=== PATIENT | male | born 1965 | race Hispanic/Latino ===

== ENCOUNTER → 2017-10-27 | Outpatient (CLI) | payer BC ==
[~2017-10-27] MED LIST: CIPRO500 MG PO; DEPO-TESTOS100 MG/ML; FOLIC ACID0.4 MG PO; METHOTREXA25 MG/1 M3 IV; METHOTREXATE2.5 MG PO; NORCO 7.5-3251 EACH PO; REMICADE100 MG/VIA IV; SOMA350 MG PO; TESTOSTERO200 MG/1 M PO
--- NOTE | 2017-10-27 14:51 | Diagnostic Imaging Report ---
PROCEDURE: CT ABDOMEN AND PELVIS WITHOUT CONTRAST TECHNIQUE: The abdomen and pelvis were scanned utilizing a multidetector helical scanner from the diaphragm to the lesser trochanter after the oral administration of water. No IV contrast was administered per protocol. Coronal and sagittal multiplanar reformations were obtained. COMPARISON: Patients [facility], CT, CT ABDOMEN/PELVIS WO, 05/23/2011, 16:29. Patients [facility], CT, CT ABDOMEN/PELVIS W, 04/07/2014, 17:50. INDICATIONS: CALCULUS OF KIDNEY FINDINGS: ABSENCE OF INTRAVENOUS CONTRAST DECREASES SENSITIVITY FOR DETECTION OF FOCAL LESIONS AND VASCULAR PATHOLOGY. LOWER THORAX: Lung bases are grossly clear. Atherosclerotic calcification of the coronary arteries. HEPATOBILIARY: Marked diffuse hepatic steatosis. No focal lesions. No biliary ductal dilation. The gallbladder is unremarkable. SPLEEN: No splenomegaly. PANCREAS: No focal masses or ductal dilatation. ADRENALS: No adrenal nodules. KIDNEYS/URETERS: No renal, ureteral, or bladder calculi. No hydronephrosis or obstruction. No renal contour abnormalities or significant perinephric stranding. PELVIC ORGANS/BLADDER: Bladder and prostate are unremarkable. PERITONEUM / RETROPERITONEUM: No free air or fluid. LYMPH NODES: Mildly enlarged right external iliac lymph node (series 3, image 150), which measures 1.1 cm in short axis, decreased from previous. Mildly enlarged left external iliac lymph node which measures 1.1 cm in short axis (series 3, image 145), stable. No other adenopathy. VESSELS: IVC filter in place. Extensive venous collaterals are again seen in the abdominal wall. GI TRACT: No bowel dilation or evidence of obstruction. No pericolonic inflammatory changes. Marked degenerative disc changes L5-S1 with grade 1 anterolisthesis of L5 on S1 secondary to bilateral pars interarticularis defect. High density material in the right lateral aspect of L5 likely reflects vertebroplasty. IMPRESSION: 1. no renal, ureteral, or bladder calculi. No hydronephrosis or obstruction. 2. Marked diffuse hepatic steatosis. No focal lesions. 3. Mildly enlarged right external iliac lymph node, which is decreased since prior exam. Mildly enlarged left external iliac lymph node, which is stable. No other adenopathy. Lance Cast M.D. Dictated by: Lance Cast M.D. on 10/27/2017 at 14:53 Electronically approved by: Lance Cast M.D. on 10/27/2017 at 14:53
== END ==
LOC: CT 12:01
PROVIDERS: ATTEND Urology
DX: N20.0 Calculus of kidney (principal)
CPT/HCPCS: 74176

== ENCOUNTER → 2018-11-20 | Outpatient (CLI) | payer BC ==
--- NOTE | 2018-11-20 13:02 | Diagnostic Imaging Report ---
Exam: Right knee radiographs-3 views; left knee radiographs-3 views History: Bilateral knee pain. Comparison: None. Findings: No evidence of acute fracture, malalignment, or soft tissue mildly. No suprapatellar joint effusion. Minimal bilateral medial compartment degenerative changes Impression: No acute radiographic abnormality. Minimal bilateral knee medial compartment degenerative changes. Signed by: Dr. Cheryl Rosales MD on 11/20/2018 12:59 PM
--- NOTE | 2018-11-20 15:30 | Diagnostic Imaging Report ---
Exam: KUB - 3 views Clinical History: Renal calculus. Comparison: CT abdomen/pelvis 10/27/2017. Findings: Bowel gas partially obscures visualization of the kidneys. No evidence of nephrolithiasis. Calcification overlying the right L5 vertebral body corresponds to vertebral augmentation changes. No acute osseous abnormality. There is an IVC filter overlying the L3 vertebral body. Impression: Bowel gas partially obscures visualization of the kidneys. No evidence of nephrolithiasis. Signed by: Dr. Cheryl Rosales MD on 11/20/2018 3:27 PM
== END ==
LOC: RAD 12:00
PROVIDERS: ATTEND Urology
DX: M25.562 Pain in left knee (principal); M25.561 Pain in right knee; Z87.442 Personal history of urinary calculi
CPT/HCPCS: 74018

== ENCOUNTER → 2019-01-11 | Outpatient (CLI) | payer BC ==
[~2019-01-11] MED LIST changes: +BELBUCA SL; +CARISOPRODOL250 MG PO; +COSENTYX SC; +COUMADIN3 MG PO; +FLOMAX0.4 MG PO; +FOLIC ACID1 MG PO; +HYDROCODON-ACE1 EAC9 PO; +INVOKANA PO; +METFORMIN HCL500 MG PO; +PREDNISONE10 MG PO; +RASUVO SC; +WARFARIN SODIUM5 MG PO
--- NOTE | 2019-01-11 17:36 | Diagnostic Imaging Report ---
Exam: Testicular ultrasound. Clinical History: Right testicular pain Technique: Grayscale and color Doppler and waveform evaluation of the testes. Findings: Status post left orchiectomy. The right testicle measures 3.1 x 1.4 x 2.2 cm and demonstrates slightly heterogeneous echogenicity. Normal blood flow and waveform. 1 mm and 2 mm punctate calcifications in the superior testicle. The right epididymis measures 1.0 x 0.8 x 0.8 cm and appears normal. Trace right hydrocele. No varicocele. Bilateral nonenlarged inguinal lymph nodes. Impression: Status post left orchiectomy. Slightly heterogeneous echogenicity of right testicle with normal blood flow. Trace right hydrocele. Signed by: Molly Marcelino MD on 01/11/2019 5:32 PM
== END ==
LOC: US 16:13
PROVIDERS: ATTEND Urology
DX: C62.90 Malignant neoplasm of unspecified testis, unspecified whether descended or undescended (principal); N50.811 Right testicular pain; N43.3 Hydrocele, unspecified
CPT/HCPCS: 76870; 93976

== ENCOUNTER 2019-02-01 11:36 | Inpatient (IN) | payer BC ==
[~2019-02-01] VITALS: Ht 177.8 cm; Wt 149.2 kg
[~2019-02-01 11:36] MED LIST changes: -BELBUCA SL; -CARISOPRODOL250 MG PO; -COSENTYX SC; -COUMADIN3 MG PO; -FLOMAX0.4 MG PO; -FOLIC ACID1 MG PO; -HYDROCODON-ACE1 EAC9 PO; -INVOKANA PO; -METFORMIN HCL500 MG PO; -PREDNISONE10 MG PO; -RASUVO SC; -WARFARIN SODIUM5 MG PO
--- OUTSIDE RECORDS SUMMARY | 2019-02-01 11:39 | XMS REPORT ---
Author Author [facility] Address Unknown Phone Unavailable Care Team Providers Care Knitter Helper Name Role Phone TREASURE REDD Unavailable Unavailable Problems This patient has no known problems. Allergies, Adverse Reactions, Alerts This patient has no known allergies or adverse reactions. Medications This patient has no known medications. Results Test Description Test Time Test Comments Text Results Atomic Results Result Comments TESTICULAR 2019-01-11 17:28:00 [place] [address] Patient Name: CORBIN WEBB MR #: [id number] : 1965 Age/Sex: 53/M Req #: [id number] [facility] Physician: Ordered by: TREASURE REDD MD Report #: [id number] Location: Room/Bed: Procedure: [id number] US/US TESTICULAR Exam Date: 01/11/19 Exam Time: 1638 REPORT STATUS: Signed Exam: Testicular ultrasound. Clinical History: Right testicular pain Technique: Grayscale and color Doppler and waveform evaluation of the testes. Findings: Status post left orchiectomy. The right testicle measures 3.1 x 1.4 x 2.2 cm and demonstrates slightly heterogeneous echogenicity. Normal blood flow and waveform. 1 mm and 2 mm punctate calcifications in the superior testicle. The right epididymis measures 1.0 x 0.8 x 0.8 cm and appears normal. Trace right hydrocele. No varicocele. Bilateral nonenlarged inguinal lymph nodes. Impression: Status post left orchiectomy. Slightly heterogeneous echogenicity of right testicle with normal blood flow. Trace right hydrocele. Signed by: Lucila Vora MD on 01/11/2019 5:32 PM Dictated By: LUCILA VORA MD 31 Transcribed By: NISH on 01/11/191731 COPY TO: TREASURE REDD MD US TESTICULAR DOPPLER LTD 2019-01-11 17:28:00 [place] [address] Patient Name: CORBIN WEBB MR #: [id number] : 1965 Age/Sex: 53/M Req #: [id number] Adm Physician: Ordered by: TREASURE REDD MD Report #: [id number] Location: Room/Bed: Procedure: [id number] US/US TESTICULAR DOPPLER LTD Exam Date: 01/11/19 Exam Time: 1638 REPORT STATUS: Signed Exam: Testicular ultrasound. Clinical History: Right testicular pain Technique: Grayscale and color Doppler and waveform evaluation of the testes. Findings: Status post left orchiectomy. The right testicle measures 3.1 x 1.4 x 2.2 cm and demonstrates slightly heterogeneous echogenicity. Normal blood flow and waveform. 1 mm and 2 mm punctate calcifications in the superior testicle. The right epididymis measures 1.0 x 0.8 x 0.8 cm and appears normal. Trace right hydrocele. No varicocele. Bilateral nonenlarged inguinal lymph nodes. Impression: Status post left orchiectomy. Slightly heterogeneous echogenicity of right testicle with normal blood flow. Trace right hydrocele. Signed by: Lucila Vora MD on 01/11/2019 5:32 PM Dictated By: LUCILA VORA MD 31 Transcribed By: NISH on 01/11/191731 COPY TO: TREASURE REDD MD ABDOMEN-1VIEW (KUB) 2018-11-20 15:17:00 [place] [address] Patient Name: CORBIN WEBB MR #: [id number] : 1965 Age/Sex: 53/M Req #: [id number] Adm Physician: Ordered by: TREASURE REDD MD Report #: [id number] Location: [facility] Room/Bed: Procedure: [id number] DX/ABDOMEN-1VIEW (KUB) Exam Date: 11/20/18 Exam Time: 1458 REPORT STATUS: Signed Exam: KUB - 3 views Clinical History: Renal calculus. Comparison: CT abdomen/pelvis 10/27/2017. Findings: Bowel gas partially obscures visualization of the kidneys. No evidence of nephrolithiasis. Calcification overlying the right L5 vertebral body corresponds to vertebral augmentation changes. No acute osseous abnormality. There is an IVC filter overlying the L3 vertebral body. Impression: Bowel gas partially obscures visualization of the kidneys. No evidence of nephrolithiasis. Signed by: Dr. Davidson Brannon MD on 11/20/2018 3:27 PM Dictated By: DAVIDSON BRANNON MD 1527 Transcribed By: NISH on 11/20/18 152 COPY TO: TREASURE REDD MD KNEE THREE VIEWS BILATERAL 2018-11-20 12:56:00 [place] [address] [place], [place] [address] Patient Name: CORBIN WEBB MR #: [id number] : 1965 Age/Sex: 53/M Req #: [id number] Adm Physician: Ordered by: RUTH WILLOUGHBY Report #: [id number] Location: RAD Room/Bed: Procedure: [id number] DX/KNEE THREE VIEWS BILATERAL Exam Date: 11/20/18 Exam Time: 1228 REPORT STATUS: Signed Exam: Right knee radiographs-3 views; left knee radiographs-3 views History: Bilateral knee pain. Comparison: None. Findings: No evidence of acute fracture, malalignment, or soft tissue mildly. No suprapatellar joint effusion. Minimal bilateral medial compartment degenerative changes Impression: No acute radiographic abnormality. Minimal bilateral knee medial compartment degenerative changes. Signed by: Dr. Davidson Brannon MD on 11/20/2018 12:59 PM Dictated By: DAVIDSON BRANNON MD 1259 Transcribed By: NISH on 11/20/18 1259 COPY TO: RUTH WILLOUGHBY (NON STAFF) CT ABDOMEN/PELVIS WO [address] [address] Patient Name: CORBIN WEBB MR #: [id number] : 1965 Age/Sex: 52/M Req #: [id number] Adm Physician: Ordered by: TREASURE REDD MD Report #: [id number] Location: CT Room/Bed: Procedure: [id number] CT/CT ABDOMEN/PELVIS WO Exam Date: 10/27/17 Exam Time: 1231 REPORT STATUS: Signed PROCEDURE: CT ABDOMEN AND PELVIS WITHOUT CONTRAST TECHNIQUE: The abdomen and pelvis were scanned utilizing a multidetector helical scanner from the diaphragm to the lesser trochanter after the oral administration of water. No IV contrast was administered per protocol. Coronal and sagittal multiplanar reformations were obtained. COMPARISON: [facility], CT, CT ABDOMEN/PELVIS WO, 05/23/2011, 16:29. [facility], CT, CT ABDOMEN/PELVIS W, 04/07/2014, 17:50. INDICATIONS: CALCULUS OF KIDNEY FINDINGS: ABSENCE OF INTRAVENOUS CONTRAST DECREASES SENSITIVITY FOR DETECTION OF FOCAL LESIONS AND VASCULAR PATHOLOGY. LOWER THORAX: Lung bases are grossly clear. Atherosclerotic calcification of the coronary arteries. HEPATOBILIARY: Marked diffuse hepatic steatosis. No focal lesions. No biliary ductal dilation. The gallbladder is unremarkable. SPLEEN: No splenomegaly. PANCREAS: No focal masses or ductal dilatation. ADRENALS: No adrenal nodules. K IDNEYS/URETERS: No renal, ureteral, or bladder calculi. No hydronephrosis or obstruction. No renal contour abnormalities or significant perinephric stranding. PELVIC ORGANS/BLADDER: Bladder and prostate are unremarkable. PERITONEUM / RETROPERITONEUM: No free air or fluid. LYMPH NODES: Mildly enlarged right external iliac lymph node (series 3, image 150), which measures 1.1 cm in short axis, decreased from previous. Mildly enlarged left external iliac lymph node which measures 1.1 cm in short axis (series 3, image 145), stable. No other adenopathy. VESSELS: IVC filter in place. Extensive venous collaterals are again seen in the abdominal wall. GI TRACT: No bowel dilation or evidence of obstruction. No pericolonic inflammatory changes. Marked degenerative disc changes L5-S1 with grade 1 anterolisthesis of L5 on S1 secondary to bilateral pars interarticularis defect. High density material in the right lateral aspect of L5 likely reflects vertebropl asty. IMPRESSION: 1. no renal, ureteral, or bladder calculi. No hydronephrosis or obstruction. 2. Marked diffuse hepatic steatosis. No focal lesions. 3. Mildly enlarged right external iliac lymph node, which is decreased since prior exam. Mildly enlarged left external iliac lymph node, which is stable. No other adenopathy. Maliha Cast M.D. Dictated by: Maliha Cast M.D. on 10/27/2017 at 14:53 Electronically approved by: Maliha Cast M.D. on 10/27/2017 at 14:53 Dictated By: MALIHA CAST MD 1454 Transcribed By: KEREN on 10/27/17 1451 COPY TO: TREASURE REDD MD
[2019-02-01] MEDS ORDERED: SODIUM CHLORIDE 0.9% 1000ML 1,000 ML IV STA (12:38)
[2019-02-01] MEDS ORDERED: ACETAMINOPHEN 325 MG TAB PO ONE (12:45)
[2019-02-01] MEDS ORDERED: CEFTRIAXONE SOD 1 GM VIAL IV ONE (13:00)
[2019-02-01 13:18] LABS: BASOPHILS % 0.2 % (0.0-1.0); EOSINOPHILS # (AUTO) 0.1 (0.0-0.4); EOSINOPHILS % 0.6 % (0.0-6.0); HEMATOCRIT 47.8 % (38.2-49.6); HEMOGLOBIN 15.9 g/dL (14.0-18.0); LYMPHOCYTES # (AUTO) 0.9 (1.0-3.2); LYMPHOCYTES % 5.2 % (18.0-39.1); MEAN CORPUSCULAR HEMOGLOBIN 32.2 pg (28-32); MEAN CORPUSCULAR HGB CONC 33.3 g/dL (31-35); MEAN CORPUSCULAR VOLUME 96.8 fL (81-99); MONOCYTES % 5.9 % (4.4-11.3); NEUTROPHILS # (AUTO) 14.5 (2.1-6.9); NEUTROPHILS % 87.5 % (38.7-80.0); PLATELET COUNT 201 x10e3/uL (140-360); RED BLOOD COUNT 4.94 x10e6/uL (4.3-5.7); RED CELL DISTRIBUTION WIDTH 15.3 % (11.7-14.4)
[2019-02-01 13:36] LABS: INR 1.83; PROTHROMBIN TIME 21.8 seconds (11.9-14.5)
[2019-02-01 13:37] LABS: PARTIAL THROMBOPLASTIN TIME 33.9 seconds (23.8-35.5)
[2019-02-01 13:48] LABS: ALANINE AMINOTRANSFERASE 49 IU/L (0-55); ALBUMIN 3.7 g/dL (3.5-5.0); ALBUMIN/GLOBULIN RATIO 0.9 (0.8-2.0); ALKALINE PHOSPHATASE 73 IU/L (40-150); ANION GAP 18.1 mmol/L (8-16); BLOOD UREA NITROGEN 20 mg/dL (7-26); BUN/CREATININE RATIO 21 (6-25); CARBON DIOXIDE 23 mmol/L (22-29); CHLORIDE 100 mmol/L (98-107); CREATINE KINASE 71 IU/L (30-200); CREATININE, SERUM 0.94 mg/dL (0.72-1.25); EST GLOMERULAR FILTRATION RATE > 60 ML/MIN (60-); GLUCOSE 185 mg/dL (74-118); POTASSIUM 4.1 mmol/L (3.5-5.1); SODIUM 137 mmol/L (136-145)
[2019-02-01] MEDS ORDERED: CEFTRIAXONE SOD 1 GM/NS 50 ML 50 ML IV ONE (15:15)
--- NOTE | 2019-02-01 15:49 | Diagnostic Imaging Report ---
Chest radiograph, single portable view Clinical indication: Bodyaches, shaking Comparison: No chest radiograph comparisons available for review. Findings: The heart is within normal limits in size. The mediastinal and hilar contours are unremarkable. The mediastinal and hilar contours are unremarkable. No focal consolidation, sizable pleural effusion, or pneumothorax. No acute osseous abnormalities are identified. Impression: No radiographic evidence of acute cardiopulmonary process. Signed by: Warner Cramer MD on 02/01/2019 3:46 PM
[2019-02-01] MEDS ORDERED: MORPHINE SULFATE INJ 4 MG/ML INJ 1ML IV STA (16:35)
[2019-02-01] MEDS ORDERED: ONDANSETRON HCL INJ 2MG/ML 2ML 2 MG/ML VIAL IV STA (16:35)
[2019-02-01 16:48] LABS: BILIRUBIN,URINE NEGATIVE (NEGATIVE); CLARITY,URINE CLEAR (CLEAR); COLOR,URINE YELLOW (YELLOW); KETONES,URINE NEGATIVE (NEGATIVE); LEUKOCYTE ESTERASE ,URINE NEGATIVE (NEGATIVE); NITRITE,URINE NEGATIVE (NEGATIVE); PROTEIN,URINE DIPSTICK NEGATIVE (NEGATIVE); URINE UROBILINOGEN 0.2 mg/dL (0.2 - 1)
[2019-02-01 17:04] LABS: BACTERIA,URINE RARE /HPF; EPITHELIAL CELLS,URINE FEW /LPF
[2019-02-01] MEDS ORDERED: ONDANSETRON HCL INJ 2MG/ML 2ML 2 MG/ML VIAL IV PRN (18:00)
[2019-02-01] MEDS ORDERED: AZITHROMYCIN 500MG/NS 250 ML 250 ML IV SCH (18:00)
[2019-02-01] MEDS ORDERED: CEFTRIAXONE SOD 1 GM/NS 50 ML 50 ML IV SCH (18:00)
[2019-02-01] MEDS: SODIUM CHLORIDE 0.9% 1000ML 1,000 ML IV SCH (18:24)
[2019-02-01] MEDS: ENOXAPARIN SODIUM INJ 100 MG/ML SYR SC SCH (18:24)
[2019-02-01] MEDS ORDERED: INVOKANA PO (19:41)
[2019-02-01] MEDS ORDERED: WARFARIN SODIUM5 MG PO (19:41)
[2019-02-01] MEDS ORDERED: FOLIC ACID1 MG PO (19:41)
[2019-02-01] MEDS ORDERED: HYDROCODON-ACE1 EAC9 PO (19:41)
[2019-02-01] MEDS ORDERED: FLOMAX0.4 MG PO (19:41)
[2019-02-01] MEDS ORDERED: BELBUCA SL (19:41)
[2019-02-01] MEDS ORDERED: COSENTYX SC (19:41)
[2019-02-01] MEDS ORDERED: CARISOPRODOL250 MG PO (19:41)
[2019-02-01] MEDS ORDERED: RASUVO SC (19:41)
[2019-02-01 19:47] LABS: CREATINE KINASE MB 0.8 ng/mL (0-5.0)
[2019-02-01] MEDS ORDERED: ACETAMINOPHEN 325 MG TAB PO PRN (20:00)
[2019-02-01] MEDS ORDERED: HYDROCODONE/APAP 10MG-325MG TAB PO PRN (20:15)
[2019-02-01] MEDS: MORPHINE SULFATE INJ 4 MG/ML INJ 1ML IV PRN (21:31)
[2019-02-01 22:08] VITALS: BP 151/79
[2019-02-01 22:19] VITALS: BP 151/79
[2019-02-02] VITALS (8 sets, daily range): BP systolic 121–152; BP diastolic 65–83
[2019-02-02] MEDS: MORPHINE SULFATE INJ 4 MG/ML INJ 1ML IV PRN ×6 (01:44→23:54)
[2019-02-02] MEDS: SODIUM CHLORIDE 0.9% 1000ML 1,000 ML IV SCH ×4 (01:47→23:31)
[2019-02-02 04:24] LABS: BASOPHILS % 0.3 % (0.0-1.0); EOSINOPHILS % 0.1 % (0.0-6.0); HEMATOCRIT 42.4 % (38.2-49.6); HEMOGLOBIN 13.8 g/dL (14.0-18.0); LYMPHOCYTES # (AUTO) 1.3 (1.0-3.2); LYMPHOCYTES % 10.9 % (18.0-39.1); MEAN CORPUSCULAR HEMOGLOBIN 32.1 pg (28-32); MEAN CORPUSCULAR HGB CONC 32.5 g/dL (31-35); MEAN CORPUSCULAR VOLUME 98.6 fL (81-99); MONOCYTES # (AUTO) 1.2 (0.2-0.8); MONOCYTES % 9.9 % (4.4-11.3); NEUTROPHILS # (AUTO) 9.1 (2.1-6.9); NEUTROPHILS % 78.5 % (38.7-80.0); PLATELET COUNT 155 x10e3/uL (140-360); RED CELL DISTRIBUTION WIDTH 15.4 % (11.7-14.4)
[2019-02-02 05:07] LABS: ALANINE AMINOTRANSFERASE 34 IU/L (0-55); ALBUMIN 2.8 g/dL (3.5-5.0); ALBUMIN/GLOBULIN RATIO 0.7 (0.8-2.0); ANION GAP 14.8 mmol/L (8-16); BLOOD UREA NITROGEN 15 mg/dL (7-26); BUN/CREATININE RATIO 19 (6-25); CALCIUM 9.4 mg/dL (8.4-10.2); CARBON DIOXIDE 26 mmol/L (22-29); CHLORIDE 102 mmol/L (98-107); CHOL/HDL RATIO 3.6 (3.9-4.7); CHOLESTEROL 146 MD/DL (0-199); CREATININE, SERUM 0.81 mg/dL (0.72-1.25); EST GLOMERULAR FILTRATION RATE > 60 ML/MIN (60-); GLUCOSE 128 mg/dL (74-118); HDL CHOLESTEROL 41 MG/DL (40-60); LDL CHOLESTEROL 80 MG/DL (60-130); POTASSIUM 3.8 mmol/L (3.5-5.1); SODIUM 139 mmol/L (136-145); TRIGLYCERIDES 126 MG/DL (0-149)
[2019-02-02 05:17] LABS: CREATINE KINASE MB 1.9 ng/mL (0-5.0)
[2019-02-02 05:32] LABS: FREE T4 (FREE THYROXINE) 0.87 ng/dL (0.8-1.8); THYROID STIMULATING HORMONE 0.882 uIU/mL (0.350-4.940)
[2019-02-02 05:35] LABS: ALKALINE PHOSPHATASE 60 IU/L (40-150)
--- NOTE | 2019-02-02 07:00 | NUR ---
BEDSIDE SHIFT REPORT RECEIVED FROM THE AUTOMOBILE REPOSSESSOR RN. PT DENIES NEEDS AT THIS TIME. PT FAMILY AT BEDSIDE.
[2019-02-02] MEDS: FAMOTIDINE 20 MG TAB PO SCH ×2 (08:15→17:20)
[2019-02-02] MEDS: ENOXAPARIN SODIUM INJ 100 MG/ML SYR SC SCH ×2 (08:50→19:59)
[2019-02-02] MEDS: METHYLPREDNISOLONE SOD SUCC 125 MG/2ML VIAL IV SCH ×2 (09:00→19:59)
[2019-02-02] MEDS ORDERED: TAMSULOSIN HCL 0.4 MG CAP PO SCH (09:00)
[2019-02-02 09:38] LABS: INR 1.77; PROTHROMBIN TIME 21.3 seconds (11.9-14.5)
[2019-02-02] MEDS: INSULIN LISPRO 100 UNIT/1 ML 3ML VIAL SQ SCH ×3 (11:30→19:59)
[2019-02-02 11:46] LABS: CREATINE KINASE MB 1.4 ng/mL (0-5.0)
[2019-02-02] MEDS ORDERED: DEXTROSE 50% SYRINGE 50 ML IV PRN ×2 (12:30)
--- NOTE | 2019-02-02 12:30 | NUR ---
PT REFUSED INSULIN. INFORMED ISIDORO,EMEKA
--- NOTE | 2019-02-02 12:45 | NUR ---
DR. CENTENO AT BEDSIDE. PER THE COUMADIN DAILY DOSE AND CHECK PT/INR DAILY. INFORMED THE SAME TO [facility] PER THE . .
[2019-02-02] MEDS: PIPER-TAZ 3.375 GM 50 ML IV SCH ×3 (13:07→23:31)
--- NOTE | 2019-02-02 14:00 | NUR ---
RESPIRATORY RECOMMENDS CPAP FOR THE PT. OKAY TO RESUME PER ISIDORO CARPET REPAIRER. INFORMED RESPIRATORY.
[2019-02-02] MEDS ORDERED: METFORMIN HCL500 MG PO (15:28)
[2019-02-02 15:53] LABS: INR 1.65; PROTHROMBIN TIME 20.1 seconds (11.9-14.5)
[2019-02-02] MEDS ORDERED: INSULIN LISPRO 100 UNIT/1 ML 3ML VIAL SQ SCH (16:30)
[2019-02-02] MEDS: METFORMIN HCL 500 MG TAB PO SCH (17:44)
[2019-02-02] MEDS: WARFARIN SOD 5 MG TAB PO SCH (17:44)
--- NOTE | 2019-02-02 19:00 | NUR ---
BEDSIDE SHIFT REPORT GIVEN TO THE GROUP DIRECTOR EXPERIENCE RN. PT DENIED FURTHER NEEDS.
--- NOTE | 2019-02-02 19:48 | NUR ---
PT IS RESTING IN BED. RESPIRATION IS EVEN AND UNLABORED, NO DISTRESS NOTED. BED IN THE LOWEST POSITION, LOCKED, AND CALL LIGHT WITHIN REACH. WILL CONTINUE TO MONITOR.
[2019-02-03] VITALS (8 sets, daily range): BP systolic 138–153; BP diastolic 77–90
[2019-02-03 04:19] LABS: BASOPHILS % 0.1 % (0.0-1.0); HEMATOCRIT 41.9 % (38.2-49.6); HEMOGLOBIN 13.9 g/dL (14.0-18.0); LYMPHOCYTES # (AUTO) 0.7 (1.0-3.2); LYMPHOCYTES % 8.6 % (18.0-39.1); MEAN CORPUSCULAR HEMOGLOBIN 32.2 pg (28-32); MEAN CORPUSCULAR HGB CONC 33.2 g/dL (31-35); MONOCYTES # (AUTO) 0.2 (0.2-0.8); MONOCYTES % 2.3 % (4.4-11.3); NEUTROPHILS # (AUTO) 7.4 (2.1-6.9); NEUTROPHILS % 88.6 % (38.7-80.0); PLATELET COUNT 151 x10e3/uL (140-360); RED BLOOD COUNT 4.32 x10e6/uL (4.3-5.7); RED CELL DISTRIBUTION WIDTH 14.6 % (11.7-14.4)
[2019-02-03 04:40] LABS: INR 1.59; PROTHROMBIN TIME 19.6 seconds (11.9-14.5)
[2019-02-03 04:46] LABS: ANION GAP 14.3 mmol/L (8-16); BLOOD UREA NITROGEN 17 mg/dL (7-26); BUN/CREATININE RATIO 21 (6-25); CALCIUM 9.6 mg/dL (8.4-10.2); CARBON DIOXIDE 24 mmol/L (22-29); CHLORIDE 103 mmol/L (98-107); CREATININE, SERUM 0.81 mg/dL (0.72-1.25); EST GLOMERULAR FILTRATION RATE > 60 ML/MIN (60-); GLUCOSE 190 mg/dL (74-118); POTASSIUM 4.3 mmol/L (3.5-5.1); SODIUM 137 mmol/L (136-145)
[2019-02-03] MEDS: PIPER-TAZ 3.375 GM 50 ML IV SCH ×4 (05:58→23:52)
[2019-02-03] MEDS: MORPHINE SULFATE INJ 4 MG/ML INJ 1ML IV PRN ×4 (06:42→20:38)
[2019-02-03] MEDS ORDERED: CITRATE OF MAGNESIA 300ML BOTTLE PO STA (06:58)
--- NOTE | 2019-02-03 07:00 | NUR ---
BEDSIDE SHIFT REPORT RECEIVED FROM THE AUTOMOTIVE PRODUCT SPECIALIST RN. PT DENIES NEEDS AT THIS TIME. PT FAMILY AT BEDSIDE.
[2019-02-03] MEDS: INSULIN LISPRO 100 UNIT/1 ML 3ML VIAL SQ SCH ×4 (07:30→21:00)
[2019-02-03] MEDS: FAMOTIDINE 20 MG TAB PO SCH ×2 (07:41→17:14)
[2019-02-03] MEDS: ENOXAPARIN SODIUM INJ 100 MG/ML SYR SC SCH ×2 (08:00→20:38)
[2019-02-03] MEDS: METFORMIN HCL 500 MG TAB PO SCH ×2 (08:00→17:14)
[2019-02-03] MEDS: METHYLPREDNISOLONE SOD SUCC 125 MG/2ML VIAL IV SCH ×2 (08:00→20:38)
[2019-02-03] MEDS ORDERED: NON-FORMULARY MEDICATION ([Invokana] 300 MG) PO SCH (09:00)
[2019-02-03] MEDS: CANAGLIFLOZIN 300 MG TABLET PO SCH (10:24)
--- NOTE | 2019-02-03 12:15 | NUR ---
PT REFUSED INSULIN. PER THE PT HE DOESN'T WANT ANY INSULIN.
[2019-02-03] MEDS: WARFARIN SOD 5 MG TAB PO SCH (17:18)
--- NOTE | 2019-02-03 19:00 | NUR ---
BEDSIDE SHIFT REPORT GIVEN TO THE DIRECTOR FURNITURE RN. FAMILY AT BEDSIDE. PT DENIED FURTHER NEEDS.
--- NOTE | 2019-02-03 19:15 | NUR ---
Received patient from day nurse, patient is stable, denies any concerns at this time. safety and fall precautions maintained as per hospital protocol: bed in lowest position and locked, needed items beside bed and call rocha closed to patient, patient instructed to use it to call nurses for any help needed, patient verbalized understanding, patient is currently stable will continue to monitor.
[2019-02-03] MEDS: TAMSULOSIN HCL 0.4 MG CAP PO SCH (20:38)
[2019-02-04] VITALS (7 sets, daily range): BP systolic 140–174; BP diastolic 76–96
[2019-02-04] MEDS: MORPHINE SULFATE INJ 4 MG/ML INJ 1ML IV PRN ×4 (00:39→23:37)
[2019-02-04 03:54] LABS: BASOPHILS % 0.1 % (0.0-1.0); HEMATOCRIT 42.7 % (38.2-49.6); HEMOGLOBIN 13.9 g/dL (14.0-18.0); LYMPHOCYTES # (AUTO) 0.7 (1.0-3.2); LYMPHOCYTES % 8.3 % (18.0-39.1); MEAN CORPUSCULAR HEMOGLOBIN 31.9 pg (28-32); MEAN CORPUSCULAR HGB CONC 32.6 g/dL (31-35); MEAN CORPUSCULAR VOLUME 97.9 fL (81-99); MONOCYTES # (AUTO) 0.2 (0.2-0.8); MONOCYTES % 1.7 % (4.4-11.3); NEUTROPHILS # (AUTO) 7.9 (2.1-6.9); NEUTROPHILS % 89.4 % (38.7-80.0); PLATELET COUNT 180 x10e3/uL (140-360); RED BLOOD COUNT 4.36 x10e6/uL (4.3-5.7); RED CELL DISTRIBUTION WIDTH 14.5 % (11.7-14.4)
[2019-02-04 04:13] LABS: ANION GAP 12.6 mmol/L (8-16); BLOOD UREA NITROGEN 24 mg/dL (7-26); BUN/CREATININE RATIO 24 (6-25); CALCIUM 9.5 mg/dL (8.4-10.2); CARBON DIOXIDE 25 mmol/L (22-29); CHLORIDE 102 mmol/L (98-107); CREATININE, SERUM 0.98 mg/dL (0.72-1.25); EST GLOMERULAR FILTRATION RATE > 60 ML/MIN (60-); GLUCOSE 216 mg/dL (74-118); POTASSIUM 4.6 mmol/L (3.5-5.1); SODIUM 135 mmol/L (136-145)
[2019-02-04] MEDS: PIPER-TAZ 3.375 GM 50 ML IV SCH ×4 (06:12→23:37)
[2019-02-04 06:36] LABS: INR 1.77; PROTHROMBIN TIME 21.3 seconds (11.9-14.5)
[2019-02-04] MEDS ORDERED: HYDROCODONE/APAP 5MG-325MG TAB PO PRN (06:45)
--- NOTE | 2019-02-04 06:45 | NUR ---
Patient condition throughout the night was stable, patient endorsed to next shift for continuity of care.
[2019-02-04] MEDS: INSULIN LISPRO 100 UNIT/1 ML 3ML VIAL SQ SCH ×4 (07:30→20:15)
[2019-02-04] MEDS: ENOXAPARIN SODIUM INJ 100 MG/ML SYR SC SCH ×2 (08:35→20:15)
[2019-02-04] MEDS: CANAGLIFLOZIN 300 MG TABLET PO SCH (08:35)
[2019-02-04] MEDS: METFORMIN HCL 500 MG TAB PO SCH ×2 (08:35→16:45)
[2019-02-04] MEDS: FAMOTIDINE 20 MG TAB PO SCH ×2 (08:35→16:44)
[2019-02-04] MEDS: METHYLPREDNISOLONE SOD SUCC 125 MG/2ML VIAL IV SCH ×2 (08:35→20:14)
[2019-02-04] MEDS: WARFARIN SOD 5 MG TAB PO SCH (16:44)
[2019-02-04] MEDS ORDERED: WARFARIN SOD 5 MG TAB PO SCH (17:00)
--- NOTE | 2019-02-04 19:05 | NUR ---
Received change of shift report. Walking rounds completed.
[2019-02-04] MEDS: TAMSULOSIN HCL 0.4 MG CAP PO SCH (20:14)
[2019-02-05] VITALS (8 sets, daily range): BP systolic 149–179; BP diastolic 79–96
--- NOTE | 2019-02-05 | NUR ---
Patient in bed. Family at bedside. Received pain meds as requested. Pain =5-6. Continue monitor for changes.
--- NOTE | 2019-02-05 03:30 | NUR ---
Respiratory placed CPAP on patient.
--- NOTE | 2019-02-05 04:14 | NUR ---
Blood drawn and sent to lab. Pressure dressing applied to site. Patient HR at 40-50 while sleeping. Denied CP or SOB.
[2019-02-05 04:18] LABS: BASOPHILS % 0.1 % (0.0-1.0); HEMATOCRIT 42.8 % (38.2-49.6); HEMOGLOBIN 14.1 g/dL (14.0-18.0); LYMPHOCYTES # (AUTO) 0.7 (1.0-3.2); LYMPHOCYTES % 8.4 % (18.0-39.1); MEAN CORPUSCULAR HGB CONC 32.9 g/dL (31-35); MEAN CORPUSCULAR VOLUME 97.3 fL (81-99); MONOCYTES # (AUTO) 0.2 (0.2-0.8); MONOCYTES % 2.8 % (4.4-11.3); NEUTROPHILS % 87.8 % (38.7-80.0); PLATELET COUNT 183 x10e3/uL (140-360); RED CELL DISTRIBUTION WIDTH 14.6 % (11.7-14.4)
[2019-02-05 04:39] LABS: ANION GAP 13.3 mmol/L (8-16); BLOOD UREA NITROGEN 25 mg/dL (7-26); BUN/CREATININE RATIO 25 (6-25); CALCIUM 9.7 mg/dL (8.4-10.2); CARBON DIOXIDE 25 mmol/L (22-29); CHLORIDE 101 mmol/L (98-107); CREATININE, SERUM 0.99 mg/dL (0.72-1.25); EST GLOMERULAR FILTRATION RATE > 60 ML/MIN (60-); GLUCOSE 216 mg/dL (74-118); POTASSIUM 4.3 mmol/L (3.5-5.1); SODIUM 135 mmol/L (136-145)
[2019-02-05] MEDS: PIPER-TAZ 3.375 GM 50 ML IV SCH ×3 (05:00→18:04)
[2019-02-05 05:41] LABS: INR 2.06; PROTHROMBIN TIME 23.9 seconds (11.9-14.5)
[2019-02-05] MEDS: INSULIN LISPRO 100 UNIT/1 ML 3ML VIAL SQ SCH ×4 (07:30→20:41)
[2019-02-05] MEDS ORDERED: PREDNISONE10 MG PO (07:36)
--- NOTE | 2019-02-05 07:40 | NUR ---
patient resting in bed, not in any distress, keep monitoring
[2019-02-05] MEDS: ENOXAPARIN SODIUM INJ 100 MG/ML SYR SC SCH (09:08)
[2019-02-05] MEDS: CANAGLIFLOZIN 300 MG TABLET PO SCH (09:08)
[2019-02-05] MEDS: METFORMIN HCL 500 MG TAB PO SCH ×2 (09:08→16:58)
[2019-02-05] MEDS: FAMOTIDINE 20 MG TAB PO SCH ×2 (09:08→16:57)
[2019-02-05] MEDS: METHYLPREDNISOLONE SOD SUCC 125 MG/2ML VIAL IV SCH ×2 (09:08→20:42)
[2019-02-05] MEDS: MORPHINE SULFATE INJ 4 MG/ML INJ 1ML IV PRN ×2 (11:35→20:42)
[2019-02-05] MEDS: WARFARIN SOD 5 MG TAB PO SCH (16:58)
--- NOTE | 2019-02-05 18:45 | NUR ---
Received bedside report from day shift RN. The patient is sitting up on the bed, not in distress. Call light within reach, bed height low, side rails up x2, and wheels lock.
[2019-02-05] MEDS: TAMSULOSIN HCL 0.4 MG CAP PO SCH (20:42)
[2019-02-06] VITALS: BP 178/90
[2019-02-06] MEDS: PIPER-TAZ 3.375 GM 50 ML IV SCH ×3 (02:15→12:07)
[2019-02-06 04:00] VITALS: BP 178/91
--- NOTE | 2019-02-06 07:00 | NUR ---
RECEIVED PATIENT RESTING IN BED. NO ACUTE DISTRESS NOTED. CALL LIGHT WITHIN REACH. BED IN THE LOWEST POSITION.
[2019-02-06 07:01] LABS: BASOPHILS % 0.1 % (0.0-1.0); HEMATOCRIT 43.6 % (38.2-49.6); HEMOGLOBIN 14.5 g/dL (14.0-18.0); LYMPHOCYTES # (AUTO) 0.8 (1.0-3.2); LYMPHOCYTES % 11.7 % (18.0-39.1); MEAN CORPUSCULAR HEMOGLOBIN 32.2 pg (28-32); MEAN CORPUSCULAR HGB CONC 33.3 g/dL (31-35); MEAN CORPUSCULAR VOLUME 96.7 fL (81-99); MONOCYTES # (AUTO) 0.2 (0.2-0.8); MONOCYTES % 3.3 % (4.4-11.3); NEUTROPHILS # (AUTO) 5.9 (2.1-6.9); NEUTROPHILS % 83.6 % (38.7-80.0); PLATELET COUNT 172 x10e3/uL (140-360); RED BLOOD COUNT 4.51 x10e6/uL (4.3-5.7); RED CELL DISTRIBUTION WIDTH 14.4 % (11.7-14.4)
[2019-02-06 07:19] LABS: ANION GAP 13.2 mmol/L (8-16); BLOOD UREA NITROGEN 25 mg/dL (7-26); BUN/CREATININE RATIO 29 (6-25); CALCIUM 9.7 mg/dL (8.4-10.2); CARBON DIOXIDE 27 mmol/L (22-29); CHLORIDE 98 mmol/L (98-107); CREATININE, SERUM 0.87 mg/dL (0.72-1.25); EST GLOMERULAR FILTRATION RATE > 60 ML/MIN (60-); GLUCOSE 171 mg/dL (74-118); POTASSIUM 4.2 mmol/L (3.5-5.1); SODIUM 134 mmol/L (136-145)
[2019-02-06] MEDS: INSULIN LISPRO 100 UNIT/1 ML 3ML VIAL SQ SCH ×2 (07:30→11:30)
[2019-02-06 08:00] VITALS: BP 171/82
[2019-02-06] MEDS: FAMOTIDINE 20 MG TAB PO SCH (08:35)
[2019-02-06] MEDS: MORPHINE SULFATE INJ 4 MG/ML INJ 1ML IV PRN (08:35)
[2019-02-06] MEDS: METHYLPREDNISOLONE SOD SUCC 125 MG/2ML VIAL IV SCH (08:35)
[2019-02-06] MEDS: CANAGLIFLOZIN 300 MG TABLET PO SCH (08:35)
[2019-02-06] MEDS: METFORMIN HCL 500 MG TAB PO SCH (08:35)
[2019-02-06 08:36] VITALS: BP 148/94
[2019-02-06 09:16] LABS: INR 2.28; PROTHROMBIN TIME 25.8 seconds (11.9-14.5)
[2019-02-06] MEDS ORDERED: COUMADIN3 MG PO (10:09)
[2019-02-06] MEDS ORDERED: ONDANSETRON HCL 4 MG ORAL DISINTEGRATING TAB PO PRN (10:45)
[2019-02-06 12:00] VITALS: BP 182/98
[2019-02-06] MEDS ORDERED: HYDRALAZINE HCL 20 MG/ML VIAL IV ONE (13:00)
[2019-02-06 13:13] VITALS: BP 152/78
--- NOTE | 2019-02-06 13:33 | NUR ---
RECEIVED DC ORDER FROM MD. PATIENT IS IN STABLE CONDITION. IV LINE TO LEFT AC DCD WITH TIP INTACT, PRESSURE APPLIED TO SITE, NO BLEEDING NOTED. DISCHARGE TEACHING PROVIDED TO PATIENT, HE VERBALIZED UNDERSTANDING. DISCHARGE FOLDER ON HAND WHICH CONTAINS DC PAPERWORK AND PRESCRIPTIONS. PERSONAL ITEMS ON HAND. PATIENT ACCOMPANIED TO PRIVATE AUTO VIA WHEELCHAIR BY STAFF.
--- NOTE | 2019-02-06 15:21 | Consultation ---
DATE OF CONSULTATION: 02/02/[address] Aburto. HISTORY OF PRESENT ILLNESS: Ender Daigle is a 53-year-old male, who is very well known to me for deep vein thrombosis, chronic venous congestion, IVC filter, left testicular cancer. The patient has disappeared from my office long time back, has not had any followup. FAMILY HISTORY: Noncontributory. FAMILY HISTORY: Noncontributory. ALLERGIES: REPORTED NONE. MEDICATIONS: At this time consist of: 1. Zosyn. 2. Sodium chloride. 3. Ondansetron. 4. Morphine. 5. Lovenox. 6. Tylenol. 7. Pepcid. 8. Methylprednisolone. REVIEW OF SYSTEMS: HEENT: Normal. CARDIAC: History of hyperlipidemia. RESPIRATORY: History of pulmonary embolus, history of IVC filter. GI: Normal. : Left testicular cancer treated in the past. MUSCULOSKELETAL: History of rheumatoid arthritis. NEUROENDOCRINE: History of hyperglycemia at times. PHYSICAL EXAMINATION: GENERAL: A large built male. NECK: No adenopathy. HEART: Within normal limits. LUNGS: Clear. ABDOMEN: Obese. RECTAL: Deferred. The patient does have left testes missing. CENTRAL NERVOUS SYSTEM: Essentially normal. LABORATORY DATA: Lab shows a sodium of 139, potassium 3.8, chloride 102, CO2 26, BUN 15, creatinine 0.8, and glucose 128. Hemoglobin 13.8, hematocrit 42.4, white count 11,600, and platelets 156,000. INR 1.77. Bilirubin 2, SGOT 21, SGPT 34, and alkaline phosphatase 60. IMPRESSION: 1. History of bilateral deep venous thrombosis. 2. History of rheumatoid arthritis. 3. History of diabetes mellitus. 4. History of hyperlipidemia. 5. Chronic venous congestion of both legs. 6. History of IVC filter. 7. History of left testicular cancer. 8. Morbid obesity. 9. Leukocytosis. 10. Hyperglobulinemia. 11. Hypoalbuminemia. 12. High D-dimer. 13. Under coagulated. 14. Urinary tract infection. 15. History of benign prostatic hyperplasia. PLAN: Plan is to increase the Coumadin, keep the INR to 3.5. Lifetime anticoagulation, as he does have IVC filter and had an underlying malignancy. Thank you very much for allowing me to participate in management of this patient. I will be more than happy to follow this patient as outpatient with the attending would call and make an appointment. MD ERICKA Vásquez/CHRIS /[id number]
== END 2019-02-06 13:33 | disposition home or self-care (01) | DRG 813 ==
LOC: ER 11:36 → ERHOLD 17:47 → MED/SURG3 20:53 → OBSVTOIN 02-03 09:17
PROVIDERS: ADMIT Internal Medicine; ATTEND Internal Medicine
DX: D68.9 Coagulation defect, unspecified (principal); R65.10 Systemic inflammatory response syndrome (SIRS) of non-infectious origin without acute organ dysfunction; Z68.42 Body mass index [BMI] 45.0-49.9, adult; M06.9 Rheumatoid arthritis, unspecified; Z86.718 Personal history of other venous thrombosis and embolism; Z79.01 Long term (current) use of anticoagulants; G47.33 Obstructive sleep apnea (adult) (pediatric); E11.9 Type 2 diabetes mellitus without complications; Z85.47 Personal history of malignant neoplasm of testis; E66.01 Morbid (severe) obesity due to excess calories; N40.0 Benign prostatic hyperplasia without lower urinary tract symptoms; E88.09 Other disorders of plasma-protein metabolism, not elsewhere classified; R77.1 Abnormality of globulin; Z95.828 Presence of other vascular implants and grafts
CPT/HCPCS: 36415; 71045; 80048; 80053; 80061; 81001; 82550; 82553; 82948; 83036; 83518; 83605; 83735; 83880; 84439; 84443; 84484; 85025; 85379; 85610; 85651; 85730; 86140; 87040; 87070; 87086; 93005; 93306; 93970; 94660; 99284; G0378; J0360; J0456; J0696; J1650; J2270; J2405; J2543; J2930; J7030